=== PATIENT | male | born 1990 | race Caucasian/White ===

== ENCOUNTER 2022-05-17 11:30 | Day surgery (SDC) | payer OTHER ==
[~2022-05-17] VITALS: Ht 188 cm; Wt 88.9 kg
[~2022-05-17 11:30] MED LIST: MELO15TA28 PO; NS 1,000 ML IV ONE; OMEP40CA5 PO
[2022-05-17] MEDS ORDERED: fentaNYL 100 MCG/2 ML INJECTION As Ordered ONE (12:13)
[2022-05-17] MEDS ORDERED: LIDOCAINE 2% 100MG/5ML SDV (FOR ANES.) As Ordered ONE (12:13)
[2022-05-17] MEDS ORDERED: propofoL 200 MG/20 ML VIAL As Ordered ONE (12:13)
[2022-05-17 12:55] VITALS: BP 133/80
== END 2022-05-17 13:02 | disposition home or self-care (01) ==
LOC: M OPP 11:30
PROVIDERS: ATTEND Internal Medicine Gastroenterology
DX: K22.89 Other specified disease of esophagus (principal); K21.00 Gastro-esophageal reflux disease with esophagitis, without bleeding; Z79.899 Other long term (current) drug therapy; Z88.2 Allergy status to sulfonamides; Z88.3 Allergy status to other anti-infective agents; F32.9 Major depressive disorder, single episode, unspecified; F41.9 Anxiety disorder, unspecified
CPT/HCPCS: 43239; 43249; 88305; J3010